=== PATIENT | female | born 1965 ===

== ENCOUNTER 2018-12-17 13:49 | Emergency (ER) | payer OTHER ==
[2018-12-17 13:57] VITALS: BMI 19.6
[2018-12-17] MEDS ORDERED: Sodium Chloride 0.9% 1,000 ML IV ONE (14:23)
[2018-12-17] MEDS ORDERED: Vancomycin 1 gm/NS 200 ml 1 GM/200 ML BAG IVPB STA (14:23)
[2018-12-17] MEDS ORDERED: Piperacillin/Tazobact 3.375 gm 100 ML IVPB STA (14:23)
--- NOTE | 2018-12-17 14:32 | C.PDOC ---
History Of Present Illness 53 y/o female presents to ED with complaints of left breast swelling for the last few weeks. Patient saw her PMD today and was sent to the ER for evaluation. Patient has no other complaints. Time Seen by Provider: 12/17/18 14:01 Chief Complaint (Nursing): Breast Problem History Per: Patient History/Exam Limitations: no limitations Onset/Duration Of Symptoms: Days Current Symptoms Are (Timing): Still Present Past Medical History Reviewed: Historical Data, Nursing Documentation, Vital Signs Vital Signs: Last Vital Signs Temp 99.1 F 12/17/18 13:58 Pulse 128 H 12/17/18 13:58 Resp 17 12/17/18 13:58 BP 126/77 12/17/18 13:58 Pulse Ox 100 12/17/18 13:58 Primary Care Provider: FAMILY PROVIDER,NO Surgical History: Tonsillectomy Family History: States: No Known Family Hx - Social History Hx Alcohol Use: Yes Hx Substance Use: No - Immunization History Hx Tetanus Toxoid Vaccination: No Hx Influenza Vaccination: No Hx Pneumococcal Vaccination: No Review Of Systems Except As Marked, All Systems Reviewed And Found Negative. Constitutional: Negative for: Fever, Chills Cardiovascular: Negative for: Chest Pain Respiratory: Negative for: Shortness of Breath Gastrointestinal: Negative for: Nausea, Vomiting Musculoskeletal: Positive for: Other (left breast swelling). Negative for: Neck Pain Neurological: Negative for: Weakness, Numbness Physical Exam - Physical Exam Appears: Non-toxic, No Acute Distress Skin: Warm, Dry Head: Normacephalic Eye(s): bilateral: Normal Inspection Oral Mucosa: Moist Neck: Supple Chest: Other (erythema and tenderness, with large lesion on left breast at 11 o clock position) Cardiovascular: Rhythm Regular, No Murmur Respiratory: Normal Breath Sounds, No Rales, No Rhonchi, No Wheezing Extremity: Bilateral: Atraumatic, Normal ROM Neurological/Psych: Oriented x3, Normal Speech ED Course And Treatment - Laboratory Results Result Diagrams: 12/17/18 15:02 12/17/18 15:02 O2 Sat by Pulse Oximetry: 100 (RA) Pulse Ox Interpretation: Normal Medical Decision Making Medical Decision Making: abscess vs underlying malignancy. Plan: --Labs --Blood Culture --Breast US --Zosyn --IV fluids --Tylenol --Vancomycin pt seen in er by surhgical team and attending dr lundy. plan on outpt bx managmetn for suspect uderlying malignancy. request dc millicent monae augmentin. plan to see surgeon tommorow Disposition - Disposition Disposition: HOME/ ROUTINE Disposition Time: 18:00 Condition: STABLE Additional Instructions: follow up with your doctor tommorow return to any er with worsening. Prescriptions: Amoxicillin/Clavulanate [Augmentin 875 MG-125 MG] 1 tab PO BID #20 tab Instructions: Breast Surgical Biopsy, Cellulitis (ED) Forms: [employer] ([place]ian) - Clinical Impression Clinical Impression: Disorder of breast - Scribe Statement The provider has reviewed the documentation as recorded by the Marty Elise Provider Attestation: Plan: --Labs --Blood Culture --Breast US --Zosyn --IV fluids --Tylenol --Vancomycin
--- NOTE | 2018-12-17 14:33 | CP.PCM.CON ---
History of Present Illness - History of Present Illness History of Present Illness: General Surgery Consult for Dr. Hackett Reason for consult: enlarged, swollen Left breast with induration and fluctuance 53 F who denies any significant PMH presents to [facility] for complaint of enlarged, swollen Left breast. Patient was seen and evaluated in the ED. Patient states that this issue has been going on for sometime now but states it had gotten extremely worse over last 2-3 weeks. Patient was recently in [place] due to the of her father and states unable to take time out to care for herself. She admits to pain and tenderness. She describes it as constant and sharp located throughout left breast. Patient admits to breast biopsy years ago but states it was benign. She is uzma-menopausal with last menstration in July. She denies family history of breast CA. Denies fever/chills, cp, SOB, palpitations, abd pain, n/v/d, constipation, numbness/tingling, incontinence. PMH: denies PSH: breast biopsy years ago All: NKDA Review of Systems - Review of Systems All systems: reviewed and no additional remarkable complaints except (as per HPI) Past Patient History - Past Social History Smoking Status: Never Smoked - PSYCHIATRIC Hx Substance Use: No - SURGICAL HISTORY Hx Tonsillectomy: Yes Meds Home Medications: Home Medication List Medication Instructions Recorded Confirmed Type Amoxicillin/Clavulanate [Augmentin 1 tab PO BID #20 tab 12/17/18 Rx 875 MG-125 MG] Allergies/Adverse Reactions: Allergies Allergy/AdvReac Type Severity Reaction Status Date / Time No Known Allergies Allergy Verified 12/17/18 13:57 - Medications Medications: Current Medications Piperacillin Sod/Tazobactam Sod (Zosyn 3.375 In Ns 100ml) 100 mls @ 200 mls/hr IVPB STAT STA; Protocol Stop: 12/17/18 14:52 Sodium Chloride (Sodium Chloride 0.9%) 1,000 mls @ 1,000 mls/hr IV .Q1H ONE Stop: 12/17/18 15:22 Vancomycin/Sodium Chloride (Vancomycin 1 Gm/Ns 200 Ml) 1 gm in 200 mls @ 133 mls/hr IVPB STAT STA; Protocol Stop: 12/17/18 15:53 Physical Exam - Constitutional Appears: Well, Non-toxic, No Acute Distress - Head Exam Head Exam: ATRAUMATIC, NORMOCEPHALIC - Eye Exam Eye Exam: EOMI, Normal appearance Pupil Exam: PERRL - ENT Exam ENT Exam: Mucous Membranes Moist - Neck Exam Neck exam: Positive for: Full Rom - Respiratory Exam Respiratory Exam: NORMAL BREATHING PATTERN - Cardiovascular Exam Cardiovascular Exam: REGULAR RHYTHM - GI/Abdominal Exam GI & Abdominal Exam: Normal Bowel Sounds, Soft. absent: Tenderness - Extremities Exam Extremities exam: Positive for: normal capillary refill, pedal pulses present - Back Exam Back exam: absent: CVA tenderness (L), CVA tenderness (R) - Neurological Exam Neurological exam: Alert, CN II-XII Intact, Normal Gait, Oriented x3 - Psychiatric Exam Psychiatric exam: Normal Affect, Normal Mood - Skin Skin Exam: Dry, Intact, Warm Additional comments: Left breast severly swollen with erythema, induration and fluctuance breast size is about 3 times larger than right palpable lymph nodes in bilateral axillas Results - Vital Signs Recent Vital Signs: Last Vital Signs Temp 99.1 F 12/17/18 13:58 Pulse 128 H 12/17/18 13:58 Resp 17 12/17/18 13:58 BP 126/77 12/17/18 13:58 Pulse Ox 100 12/17/18 14:32 - Labs Result Diagrams: 12/17/18 15:02 12/17/18 15:02 Assessment & Plan - Assessment and Plan (Free Text) Assessment: 53 F who presents for enlarged, swollen Left breast with induration and fluctuance Plan: -Beast US noted -Bedside aspiration revealed dark, bloody fluid; suspicious for malignancy -Patient may be discharged home with f/u in Dr. Hackett's office 12/18 -f/u wound culture -f/u cytology -discharge with Augmentin for 7 days -Discussed with Dr. Lew Rogers PGY2 - Date & Time Date: 12/17/18 Time: 15:00
[2018-12-17] MEDS ORDERED: Piperacillin/Tazobact 3.375 gm 100 ML IVPB ONE (14:36)
[2018-12-17 15:07] LABS: BASO % 0.5 % (0.0-2.0); HEMOGLOBIN 11.2 g/dL (11.0-16.0); LYMPH # 0.6 K/uL (1.0-4.3); LYMPH % 7.3 % (20.0-40.0); MEAN CELL VOLUME 91.4 fL (81.0-99.0); MEAN CORPUSCULAR HEMOGLOBIN 30.5 pg (27.0-31.0); MEAN CORPUSCULAR HGB CONC 33.4 g/dL (33.0-37.0); MEAN PLATELET VOLUME 8.8 fL (7.2-11.7); MONO # 0.4 K/uL (0.0-0.8); MONO % 4.6 % (0.0-10.0); NEUT # 7.7 K/uL (1.8-7.0); NEUT % 87.6 % (50.0-75.0); PLATELET COUNT 307 K/uL (130-400); RBC 3.66 Mil/uL (3.80-5.20); RED CELL DISTRIBUTION WIDTH 13.9 % (11.5-14.5); WHITE BLOOD COUNT 8.8 K/uL (4.8-10.8)
[2018-12-17 15:20] LABS: PARTIAL THROMBOPLASTIN TIME 32.2 SECONDS (21-34); PROTHROMBIN TIME 11.3 SECONDS (9.7-12.2)
[2018-12-17 15:21] LABS: ALB/GLOB RATIO 1.4 (1.0-2.1); ALBUMIN 4.6 g/dL (3.5-5.0); ALT/SGPT 20 U/L (9-52); AST/SGOT 47 U/L (14-36); BLOOD UREA NITROGEN 14 mg/dL (7-17); CALCIUM 9.5 mg/dl (8.6-10.4); GFR NON-AFRICAN AMERICAN > 60
[2018-12-17 15:52] LABS: BANDS 1 % (0-2); LYMPHOCYTE 2 % (20-40); MONOCYTE 1 % (0-10); NEUTROPHIL 96 % (50-75); PLATELET ESTIMATE NORMAL (NORMAL); TOTAL CELLS COUNTED 100
--- NOTE | 2018-12-17 16:36 | US ---
Date of service: 12/17/2018 PROCEDURE: Diagnostic right breast ultrasound examination HISTORY: swelling r/o abscess COMPARISON: Not available TECHNIQUE: Ultrasound examination was performed throughout the left breast. FINDINGS: No discrete mass is identified. The entire breast shows heterogeneous echotexture. There are cystic regions within what may be an infiltrating neoplasm of the breast. Hypervascularity is demonstrated in some regions. In the 12 o'clock axis of the left breast there are multiple irregularly-shaped cystic structures beneath the skin with low-level echoes. Uncertain significance. Cannot rule out an infectious process such as multiple abscesses. Hypervascularity is demonstrated about these collections. Please note that there is skin thickening in the left breast. This may be the result of cellulitis or may be the result of an inflammatory breast malignancy. Examination of the left axilla demonstrates several lymph nodes with abnormally thickened cortex, up to approximately 5 mm. This is abnormal. IMPRESSION: No discrete mass identified. Diffusely heterogeneous hypervascular tissue throughout the left breast of uncertain significance. Possible infiltrating malignancy. Multiple complex fluid collections in the 12 o'clock axis of the left breast, somewhat elongated, with low-level internal echoes and surrounding hypervascularity. Cannot rule out multiple abscesses. Skin thickening. Abnormal axillary lymph nodes. Recommend further evaluation with bilateral mammography if clinically feasible. BIRADS 0 Incomplete - Need additional imaging evaluation and/or prior mammograms for comparison Recommendation: Recall for additional imaging and/or comparison with prior examination, as described above. Patient will be contacted.
[2018-12-17 16:42] VITALS: PULSE 90; RESP 18
[2018-12-17] MEDS ORDERED: Vancomycin 1 GM 1 GM/250 ML BAG IVPB ONE (17:00)
[2018-12-17 19:00] VITALS: BP 116/76; TEMP 97.7
[2018-12-17 19:44] VITALS: O2SAT 100
== END 2018-12-17 19:38 | disposition home or self-care (01) ==
LOC: C.ER 13:49
DX: N63.20 Unspecified lump in the left breast, unspecified quadrant (principal)
CPT/HCPCS: 10160; 76642; 80053; 85025; 85610; 85730; 87040; 87070; 96365; 96366; 96367; 99284; J2543; J3370; J7030

== ENCOUNTER 2018-12-20 08:52 | Outpatient (CLI) | payer OTHER | END 2018-12-20 08:53 | disposition home or self-care (01) | LOC: C.MAMMO 08:52 ==